=== PATIENT | female | born 1985 | race African-American/Black ===

== ENCOUNTER 2021-11-12 16:35 | Emergency (ER) | payer MEDICAID ==
[~2021-11-12] VITALS: Ht 165.1 cm; Wt 88.5 kg
[~2021-11-12 16:35] MED LIST: IBUP-2030 PO; [UNRECOGNIZED DRUG - CODE] PO
[2021-11-12 16:41] VITALS: BP 132/85
[2021-11-12] MEDS ORDERED: ACETAMINOPHEN 325MG TABLET PO ONE (17:30)
[2021-11-12] MEDS ORDERED: BACL-141 MT (17:53)
[2021-11-12] MEDS ORDERED: IBUP-2029 MT (17:53)
[2021-11-12] MEDS ORDERED: LIDO700A15 TP (17:53)
== END 2021-11-12 18:40 ==
LOC: ER 16:35
DX: S13.4XXA Sprain of ligaments of cervical spine, initial encounter (principal); V49.49XA Driver injured in collision with other motor vehicles in traffic accident, initial encounter; Y93.89 Activity, other specified; Y92.89 Other specified places as the place of occurrence of the external cause; Y99.8 Other external cause status; Z79.899 Other long term (current) drug therapy; Z88.0 Allergy status to penicillin
CPT/HCPCS: 81025; 99283

== ENCOUNTER 2022-02-17 15:29 | Emergency (ER) | payer MEDICAID ==
[~2022-02-17] VITALS: Ht 165.1 cm; Wt 115.0 kg
[~2022-02-17 15:29] MED LIST changes: +BACL-141 MT; +IBUP-2029 MT; +LIDO700A15 TP
[2022-02-17 15:58] VITALS: BP 138/90
== END 2022-02-18 01:42 | disposition left against medical advice (07) ==
LOC: ER 15:29
DX: Z53.21 Procedure and treatment not carried out due to patient leaving prior to being seen by health care provider (principal)

== ENCOUNTER 2022-05-04 21:11 | Emergency (ER) | payer MEDICAID ==
[~2022-05-04] VITALS: Ht 165.1 cm; Wt 90.9 kg
[2022-05-04 22:06] VITALS: BP 128/74
== END 2022-05-05 08:58 | disposition left against medical advice (07) ==
LOC: ER 21:11
DX: Z53.21 Procedure and treatment not carried out due to patient leaving prior to being seen by health care provider (principal)
CPT/HCPCS: 99281

== ENCOUNTER 2025-04-23 10:35 | Emergency (ER) | payer SELFPAY ==
[~2025-04-23] VITALS: Ht 167.6 cm; Wt 63.0 kg
[~2025-04-23 10:35] MED LIST changes: +IBUP-1455 MT; -IBUP-2029 MT; +LIDO-53 TP; -LIDO700A15 TP
[2025-04-23 10:43] VITALS: O2SAT 100
[2025-04-23] MEDS ORDERED: CYCL10TA21 MT (13:29)
[2025-04-23] MEDS ORDERED: LIDO-53 TP (13:29)
[2025-04-23] MEDS ORDERED: IBUP-1455 MT (13:29)
[2025-04-23] MEDS: DEXAMETHASONE 10 MG/ML VIAL IM ONE (13:44)
[2025-04-23] MEDS: KETOROLAC 15MG/ML VIAL IM ONE (13:45)
[2025-04-23 13:50] VITALS: BP 138/88; PULSE 99; RESP 15; TEMP 36.9; O2SAT 100
== END 2025-04-23 13:51 | disposition home or self-care (01) ==
LOC: ER 10:35
DX: M54.16 Radiculopathy, lumbar region (principal); Z79.899 Other long term (current) drug therapy; Z88.0 Allergy status to penicillin
CPT/HCPCS: 99284; 81025; 96372; J1885; J1100